=== PATIENT | female | born 1930 | race Caucasian/White ===

== ENCOUNTER 2019-07-05 21:22 | Emergency (ER) | payer MEDICARE ==
[2019-07-05] MEDS ORDERED: Morphine 4 MG/ML VIAL ONE (21:39)
--- NOTE | 2019-07-05 22:19 | RAD ---
PELVIS ONE VIEW: 07/05/19 There is a small cortical irregularity along the upper outer aspect of the right femoral neck as it c ontacts the femoral head. Also the area in here shows some slight sclerosis. The remainder of the bon y pelvis appears intact. The SI joints are symmetrical and the symphysis shows no widening or offset. IMPRESSION: Highly probable impacted subcapital fracture of the right hip. Discussed case with Dr. Leal at 2209 on 07/05/19. POS: HOME
--- NOTE | 2019-07-05 22:22 | RAD ---
RIGHT HIP TWO VIEWS: 07/05/19 A small cortical irregularity is seen as the upper part of the femoral neck curves into the femoral h ead. There is also a slight acute bend in the cortex here. Very slight sclerosis is seen through the upper femoral neck in this region. The findings suggest an impacted femoral neck fracture near the lima bcapital region. There is no dislocation of the femoral head. The joint space is normal for age and symmetrical with respect to the opposite site when comparing with the pelvis film. IMPRESSION: Findings consistent with an impacted subcapital fracture of the hip. Findings discussed with Dr. Leal at 2209 on 07/05/19. POS: HOME
[2019-07-05 22:38] LABS: #Basophils 0.1 thou/uL (0.0-0.2); #Lymphocytes 1.1 thou/uL (1.20-3.40); #Monocytes 0.7 thou/uL (0.11-0.59); %Basophils 1.2 % (0.0-1.0); %Lymphocytes 18.8 % (21.0-51.0); %Monocytes 11.4 % (0.0-10.0); %Neutrophils 68.6 % (42.0-75.0); Hemoglobin 12.8 g/dL (12.0-16.0); Mean Corpuscular Hemoglobin 30.3 pg (27.0-31.0); Mean Corpuscular Volume 91.7 fL (78.0-98.0); Mean Platelet Volume 7.3 fL (7.4-10.4); Platelet Count 193 thou/uL (130-400); RBC Distribution Width 12.5 % (11.5-14.5); Red Blood Cell (RBC) Count 4.21 mill/uL (4.20-5.40); White Blood Cell (WBC) Count 5.9 thou/uL (4.8-10.8)
[2019-07-05 22:42] LABS: INR-International Normal Ratio 1.2; PTT 30.5 SEC (22.9-36.1); Prothrombin Time 15.1 SEC (12.0-14.7)
[2019-07-05 22:52] LABS: ALT (SGPT) 11 U/L (8-55); AST (SGOT) 17 U/L (5-34); Alkaline Phosphatase 70 U/L (40-110); Anion Gap 16 mmol/L (10-20); BUN (Urea Nitrogen) 17 mg/dL (9.8-20.1); Bilirubin, Total 0.6 mg/dL (0.2-1.2); Calc. Creatinine Clearance 0 mL/min (70-130); Calcium 9.4 mg/dL (7.8-10.44); Carbon Dioxide 26 mmol/L (23-31); Chloride 98 mmol/L (98-107); Estimated GFR-MDRD 37; Globulin 3.1 g/dL (2.4-3.5); Glucose 106 mg/dL (83-110); Potassium 4.5 mmol/L (3.5-5.1); Protein, Total 7.1 g/dL (6.0-8.3); Sodium 135 mmol/L (136-145)
== END 2019-07-05 23:30 | disposition short-term general hospital (02) ==
LOC: BURERS 21:22
DX: S72.011A Unspecified intracapsular fracture of right femur, initial encounter for closed fracture (principal); I48.91 Unspecified atrial fibrillation; W18.30XA Fall on same level, unspecified, initial encounter
CPT/HCPCS: 72170; 80053; 85025; 85610; 85730; 96372; J2270

== ENCOUNTER 2020-09-23 17:06 | Emergency (ER) | payer MEDICARE ==
[2020-09-23] MEDS ORDERED: Lidocaine 2% w/Epinephrine 1:200K 20 ML VIAL ONE (17:35)
[2020-09-23] MEDS ORDERED: Bacitracin 1 PK ONE (17:35)
[2020-09-23] MEDS ORDERED: CEFAZOLIN 1 GM VIAL ONE (18:00)
[2020-09-23] MEDS ORDERED: Acetaminophen 500 MG TAB ONE (18:55)
== END 2020-09-23 19:03 | disposition home or self-care (01) ==
LOC: BURERS 17:06
DX: S81.812A Laceration without foreign body, left lower leg, initial encounter (principal); I48.91 Unspecified atrial fibrillation; X58.XXXA Exposure to other specified factors, initial encounter
CPT/HCPCS: 12004; 96372; J0690

== ENCOUNTER 2020-10-15 15:12 | Emergency (ER) | payer MEDICARE ==
[2020-10-15] MEDS ORDERED: Amoxicillin/Potassium Clav 875 MG TAB ONE (16:22)
== END 2020-10-15 16:37 | disposition home or self-care (01) ==
LOC: BURERS 15:12
DX: T81.41XA Infection following a procedure, superficial incisional surgical site, initial encounter (principal); I48.91 Unspecified atrial fibrillation
CPT/HCPCS: 99282